=== PATIENT | female | born 1995 | race Caucasian/White ===

== ENCOUNTER 2023-09-18 17:28 | Emergency (ER) | payer MEDICAID ==
[~2023-09-18] VITALS: Ht 157.5 cm; Wt 90.7 kg
[2023-09-18 17:38] VITALS: O2SAT 100
[2023-09-18 18:05] LABS: HEMATOCRIT. 40.1 % (36.0-48.0); HEMOGLOBIN. 13.3 g/dL (12.0-16.0); MEAN CORPUSCULAR HEMOGLOBIN 27.8 pg (28.0-32.0); MEAN CORPUSCULAR HGB CONC 33.1 g/dL (31.0-37.0); MEAN CORPUSCULAR VOLUME 83.8 fL (81.0-99.0); MEAN PLATELET VOLUME 6.9 fl (7.4-10.4); PLATELET 309 x1000/uL (130-400); RED BLOOD CELL COUNT 4.78 mill/uL (4.2-5.4); WHITE BLOOD COUNT 11.5 x1000/uL (4.5-11.0)
[2023-09-18 18:06] LABS: DIFFERENTIAL COMMENT 1
[2023-09-18 18:10] LABS: CHLORIDE 103 mEq/L (98-107); POTASSIUM 3.8 mEq/L (3.5-5.1); SODIUM 136 mEq/L (136-145)
[2023-09-18 18:11] LABS: CALCIUM 9.2 mg/dL (8.7-10.4); CARBON DIOXIDE 25 mEq/L (21-32)
[2023-09-18 18:16] LABS: CREATININE 0.9 mg/dL (0.6-1.0); GLUCOSE 116 mg/dL (70-105); UREA NITROGEN BLOOD 12 mg/dL (9-23)
[2023-09-18 18:18] LABS: PLATELET ESTIMATE SLIGHTLY INCREASED; TROPONIN I HIGH SENSITIVITY < 4 ng/L (3.0-34)
[2023-09-18 18:19] LABS: HCG SCREEN NEGATIVE
[2023-09-18 21:25] LABS: ALANINE AMINOTRANSFERASE 10 IU/L (10-49); ALBUMIN 4.7 g/dL (3.2-4.8); ASPARTATE AMINOTRANSFERASE 23 IU/L (<34); BILIRUBIN DIRECT 0.2 mg/dL (<=3.0); BILIRUBIN TOTAL 0.6 mg/dL (0.1-1.0); PROTEIN TOTAL 8.6 g/dL (6.0-8.3)
[2023-09-18] MEDS: SODIUM CHLORIDE 0.9% 1,000 ML IV ONE (21:45)
[2023-09-18] MEDS: ONDANSETRON HCL 4MG/2ML INJ IV ONE (22:09)
[2023-09-18] MEDS ORDERED: ONDA4TAB11 PO (22:46)
[2023-09-18] MEDS: ACETAMINOPHEN 325MG TABLET PO ONE (22:46)
[2023-09-18 23:00] VITALS: BP 145/84; PULSE 104; RESP 16; TEMP 98.4
== END 2023-09-18 23:00 | disposition home or self-care (01) ==
LOC: ER 17:28
DX: A08.4 Viral intestinal infection, unspecified (principal); R07.89 Other chest pain; Z86.39 Personal history of other endocrine, nutritional and metabolic disease
CPT/HCPCS: 80076; 80048; 84703; 85025; 84484; 36415; 71045; 93005; 96361; 96374; 99285; J2405; J7030; Z7610 ×2